=== PATIENT | female | born 1995 | race Caucasian/White ===

== ENCOUNTER 2023-10-13 08:09 | Outpatient (CLI) | payer OTHER, SELFPAY | END 2023-10-13 08:10 | disposition home or self-care (01) | LOC: NFLDREF 10-16 09:17 | PROVIDERS: PCP Family Medicine; Referring Provider Family Medicine; Visit Provider Midwife | DX: E66.01 Morbid (severe) obesity due to excess calories (principal); R73.09 Other abnormal glucose; Z68.41 Body mass index [BMI] 40.0-44.9, adult | CPT/HCPCS: 82951; 82952 ==

== ENCOUNTER 2023-12-01 09:05 | Outpatient (CLI) | payer OTHER, SELFPAY | END 2023-12-01 09:06 | disposition home or self-care (01) | LOC: NFLDREF 12-05 22:44 | PROVIDERS: PCP Family Medicine; Referring Provider Family Medicine; Visit Provider Advanced Practice Midwife | DX: Z34.03 Encounter for supervision of normal first pregnancy, third trimester (principal) | CPT/HCPCS: 86592 ==

== ENCOUNTER 2023-12-28 07:55 | Outpatient (CLI) | payer OTHER, SELFPAY ==
--- NOTE | 2023-12-28 08:00 | CRLHL7_ITS ---
For Patients: As a result of the Century Cures Act, medical imaging exams and procedure reports are released immediately into your electronic medical record. You may view this report before your referring provider. If you have questions, please contact your health care provider. INDICATION: Third trimester scan, evaluate growth. Gestational diabetes, obesity. COMPARISON: 07/25/2023 TECHNIQUE: Real time thibodeaux scale imaging of the fetus was performed. FINDINGS: Sonographic imaging demonstrates a single living intrauterine gestation. Fetus demonstrates a regular cardiac rate of 133 beats per minute. Fetus has a magda breech position. The placenta lies anteriorly. Amniotic fluid volume appears normal and there is a single deepest vertical pocket: 7.3 cm. The estimated weight is 2230gm which lies at the 73rd %. BPD 97th percentile. HC 95th percentile. AC 81st percentile. FL is 21st percentile. The HC/AC ratio measures 1.08 range (0.94-1.11). IMPRESSION: Sonographic gestational age 34 weeks 2 days and sonographic due date 02/06/2024. Sonographic age 12 days ahead of the clinical age. Estimated weight 73rd percentile. Abdominal circumference 81st percentile. Dictated by Danielito Thomas MD @ 12/28/2023 11:48:18 AM (Electronically Signed)
== END 2023-12-28 07:56 | disposition home or self-care (01) ==
LOC: US 07:56
PROVIDERS: PCP Family Medicine; Visit Provider Midwife
DX: O24.410 Gestational diabetes mellitus in pregnancy, diet controlled (principal); O99.213 Obesity complicating pregnancy, third trimester; E66.01 Morbid (severe) obesity due to excess calories; Z68.41 Body mass index [BMI] 40.0-44.9, adult; Z3A.34 34 weeks gestation of pregnancy
CPT/HCPCS: 76816

== ENCOUNTER 2024-01-26 09:45 | Outpatient (CLI) | payer OTHER, SELFPAY | END 2024-01-26 09:46 | disposition home or self-care (01) | LOC: NFLDREF 01-27 19:40 | PROVIDERS: PCP Family Medicine; Referring Provider Family Medicine; Visit Provider Advanced Practice Midwife | DX: Z34.93 Encounter for supervision of normal pregnancy, unspecified, third trimester (principal); Z3A.36 36 weeks gestation of pregnancy | CPT/HCPCS: 76816; 76819; 87081; 87653 ==

== ENCOUNTER 2024-02-08 07:14 | Outpatient (CLI) | payer OTHER, SELFPAY ==
--- NOTE | 2024-02-08 07:15 | CRLHL7_ITS ---
For Patients: As a result of the Cures Act, medical imaging exams and procedure reports are released immediately into your electronic medical record. You may view this report before your referring provider. If you have questions, please contact your health care provider. INDICATION: Gestational diabetes obesity. COMPARISON: Ob ultrasound and biophysical profile from 01/26/2024. FINDINGS: Transabdominal examination of the is performed. A single intrauterine gestation is seen in cephalic presentation with regular cardiac activity at 139 beats per minute. The placenta is anterior and is free of the cervical os. The placental grade is 1 and the amniotic fluid volume is elevated visually. The DVP is increasingly elevated at 11.1 cm, slightly increased compared to the previous study where it measured 10.2 cm, top-normal 8 cm. The MARIIA is prominently elevated at 35.4 cm, increased compared to the previous study where it measured 23.4 cm. These findings are consistent with increasing polyhydramnios. The biophysical profile score is 8/8 with no points off. IMPRESSION: 1. Single intrauterine gestation in cephalic presentation with regular cardiac activity. 2. Increasing polyhydramnios, DVP 11.1 cm, MARIIA 34.5 cm, both increased compared to the previous study. 3. Normal biophysical profile score of 8/8. Dictated by Scotty Segovia MD @ 02/08/2024 10:42:44 AM (Electronically Signed)
== END 2024-02-08 07:15 | disposition home or self-care (01) ==
LOC: US 07:17
PROVIDERS: PCP Family Medicine; Visit Provider Midwife
DX: O24.419 Gestational diabetes mellitus in pregnancy, unspecified control (principal); O40.9XX0 Polyhydramnios, unspecified trimester, not applicable or unspecified
CPT/HCPCS: 76819

== ENCOUNTER 2024-02-09 13:21 | Inpatient (IN) | payer OTHER, SELFPAY ==
[2024-02-09] VITALS (8 sets, daily range): BP systolic 120–127; BP diastolic 68–71; PULSE 99–113; RESP 18; TEMP 36.5–37; O2SAT 97–100; BMI 44.0
--- NOTE | 2024-02-09 13:31 | W.PM.LDBA ---
Subjective History of Present Illness Date Seen: 02/09/24 Narrative: Patient is being admitted to Labor and Delivery for induction of labor for moderate polyhydramnios. Severe poly diagnosed here, but on follow up with transfer to [facility] yesterday, they diagnosed with mild hydramnios based on SDP. Dr Caldera was consulted and recommendation was to start induction of labor today. She is a 28 year old at 38w5d weeks gestation. Her full history and physical was dictated by Dr. Marielos CRUZ on 02/08/2024. Please see this for details. See problem list below. She is planning a natural and Roderick is supporting her at the bedside. Specific Issues/Plans G1 Roderick H&P by Jordon Boyle CNM at 38 week visit on 02/08/2024. # Moderate, borderline severe Polyhydramnios MARIIA 35.4 on 02/07, referral to [facility] per patient request and seen same day [facility] 02/08: US Impression: Cephalic, EFW 4239 g or >97%ile, no anomalies identified, DVP 11.14 or Mild polyhydramnios present. Anterior placenta. BPP 10/25. [facility] recommended return to Midnight with recommended delivery at 39 0/7 weeks for BMI>40. Reviewed findings with Dr. Caldera who recommends delivery today based on findings. She is agreeable for her to remain here at [facility] due to likely Moderate poly, possibly borderline severe. IOL consent signed 02/08. Plan patient to return for IOL this afternoon. # GDM Growth US: see below IOL 39-40 08/24: Discussed IOL at 39 0/7 due to size, pt is nervous about this. See 01/25 visit # Pre BMI greater than 40 Hemoglobin A1c 5.2 Aspirin 81 mg Referral to coverage specialist rn: Declined Referral to anesthesia: completed 11/14 Level 2 ultrasound and consult with the MFM: Unremarkable findings. Recommended growth at 28 and 34 weeks and testing starting at 34 weeks. She did not recall this discussion and desires growth at 32. Early 1 hour GTT at 16-20 weeks: 141, f/u 3hr GTT passed all Weekly testing starting at 32 weeks: scheduled Growth ultrasound 32 weeks: EFW 73%, BPD 97%, HC 95%, SDP 7.3, magda breech. Consider growth at 36 weeks: EFW >97%ile, SDP 10.2, MARIIA 23.4 # GBS positive, recommend antibiotics in labor # Rubella nonimmune MMR # Anemia in , taking iron # Suspected Macrosomia EFW 02/07: 4239 g or >97%ile # Breech at 32 weeks, RESOLVED Cephalic at 34 Transfer at 16 2/7 from [facility] labs 06/26/2023: O positive Negative antibody screen Hemoglobin 13.1 Platelets 373 Rubella nonimmune RPR non-reactive Hepatitis-B surface antigen nonreactive Hepatitis-C nonreactive Varicella immune HIV negative Gonorrhea and chlamydia negative TSH 1.50 Hemoglobin A1c 5.2 Imaging 07/25/2023: [place]-rump length 3.3 cm, 10 weeks and 2 days. heart rate 172. BIMAL 02/18/2024 08/07/2023 panoramic: Negative/low risk Pap 11/30/2020:NIL Pap TDAP: 12/28/23 RSV: 01/18/2024 Flu: declined Covid: declined OB - Problem Based A/P Additional Plan (1) : Status: Acute (2) Polyhydramnios in park in third trimester: Problem details: severe by MARIIA of 35.4 on 02/08/2402/07 DVP 11.14 by MFM and considered Mild poly Status: Acute (3) GDM (gestational diabetes mellitus), class A1: Status: Acute (4) Anemia affecting : Status: Acute (5) Supervision of high-risk : Status: Acute (6) Morbid obesity with BMI of 40.0-44.9, adult: Status: Acute (7) ADHD: Status: Acute Plan ASSESSMENT:?? 28 at 38w5d gestation?? complicated by:??GDM A1, Moderate polyhydramnios, Elevated BMI, anemia in Labor type: Induced, not yet labor?? Category 2 FHR pattern.??? Labor complicated by: GDMA1, moderate polyhydramnios, elevated BMI? GBS positive? PLAN:?? 1. Routine intrapartum cares as ordered. Initiate ripening agents. Pt opted for vaginal cytotec. Will assess FHR a bit longer before initiating to make sure it is appropriate. 2. Monitoring per policy, continuous?? 3. Planning unmedicated . Will support her to do so. Candidate for analgesia of choice.??? 4. Patient encouraged to reposition and ambulate to promote physiologic labor and .?? 5. GBS prophylaxis initiated for GBS positive status. Will treat with antibiotics per protocol.? 6. RNs notified of history of asthma-avoid hemabate if at all possible 7. Type and screen and CBC along with RPR on admit consented by Patricia 8. Anticipate ? ? OB Result Labs Blood Type: O (+) positive Rubella: immune RPR/VDLR: nonreactive GBS Status: positive HBsAG: negative OB Exam Physical Exam Narrative: Vitals Reviewed Constitutional:? Alert and oriented x3 HEENT:? Normocephalic, atraumatic Neck:? Supple Lungs:? Clear to auscultation bilaterally Heart:? Regular rate and rhythm, no murmur, rub or gallop Abdomen:? Soft, nontender, and gravid. Vertex by Joel's, confirmed with US yesterday. Extremities:? No edema or erythema Cervix: 0.5 cm/30%/-3 station/vertex NST: 140 bpm/moderate variability/accelerations present/intermittent variables decelerations/contractions not palpable, uterine irritability noted on toco
[2024-02-09 14:44] LABS: Basophils Absolute Auto 0.02 K/uL (0.00-0.30); Basophils Percent Auto 0.4 % (0.0-3.0); Eosinophils Absolute Auto 0.01 K/uL (0.00-0.50); Eosinophils Percent Auto 0.2 % (0.0-7.0); Hematocrit 35.7 % (33.0-51.0); Hemoglobin* 11.9 gm/dL (12.0-16.0); Immature Granulocytes Abs Auto 0.07 K/uL (0.00-0.30); Immature Granulocytes Pct Auto 1.3 %; Lymphocytes Percent Auto 8.7 % (20-44); Mean Corpuscular HGB Conc 33 gm/dL (32-36); Mean Corpuscular Hemoglobin 29 pg (26-34); Mean Corpuscular Volume 88 fL (80-100); Neutrophils Percent Auto 83.4 % (42.0-72.0); Platelet Count* 263 K/uL (140-440); RDW Coefficient of Variation % 14.2 % (11.5-15.5); Red Blood Count 4.06 m/uL (4.00-5.20); White Blood Count* 5.54 K/uL (4.50-11.00)
[2024-02-09 14:54] LABS: Slide Review Reflex No
[2024-02-09] MEDS: miSOPROStoL 25 MCG/0.25 TABLET VAGINAL ×2 (15:20→18:32)
[2024-02-09] MEDS: LACTATED RINGERS 1000 ML 1,000 ML 125 ML IV (21:56)
[2024-02-09] MEDS: AMPICILLIN 2 GM in 0.9 % SODIUM CHLORIDE Mini-bag 100 ML IVPB (21:56)
--- NOTE | 2024-02-09 22:20 | PM.OBPNL ---
Subjective Date Seen: 02/09/24 Narrative: Patricia is a 28 yo G1 at 38w5d who was brought in for IOL for moderate polyhydramnios. Initially, baseline was 140-150s with accels, rare variables, moderate variability. The strip has changed significantly and I came in to assess when I was made aware. She SROM'd at 2121, copious clear fluid with a prolonged decel prior to ROM. GBS prophylaxis was initiated. Upon review of the strip it was noted there had been periods of tachycardia, intermittent variables and periods of decreased variability. Cervix was checked and found to be 1/0%/high, posterior, moderate consistency. Monitors have been changed and adjusted to get accurate assessment of the baby. Maternal tachycardia noted, fluid bolus given. Plan to continue to watch for well-being and reassess for the plan. Patricia and her partner understand the concerns and the plan. Dr Caldera notified of concerns and requested to come in house for assistance as needed. Objective Vital Signs: Last Vital Signs Temp 98.1 F 02/09/24 18:37 Pulse 113 H 02/09/24 21:31 BP 127/71 02/09/24 21:31
[2024-02-09] MEDS: hydrOXYzine pamoate 25 MG CAPSULE 100 MG PO (22:44)
[2024-02-09] MEDS: MORPHINE 10 MG/ML inj IM (23:57)
[2024-02-10] VITALS (34 sets, daily range): BP systolic 87–109; BP diastolic 48–68; PULSE 70–102; RESP 16–20; TEMP 36.4–37.1; O2SAT 94–98
--- NOTE | 2024-02-10 00:05 | PM.OBPNL ---
Subjective Date Seen: 02/10/24 Narrative: Patricia is a 28 yo G1 here for IOL for polyhydramnios. She is feeling contractions and rating them an 8/10 currently. Her partner is at the bedside and supportive. She is requesting morphine IM for pain relief. Objective Exam: Objective: Constitutional: Alert and oriented x3, mild distress, coping well Vital signs stable, see nurse documentation Abdomen: gravid, contractions palpate mild when palpable with contractions and soft between Cervix: 1 cm/0%/high stationper previous exam at approx 2230 NST: 150 bpm/moderate variability/accelerations present/intermittent rare decelerations/contractions q 1-2min Vital Signs: Last Vital Signs Temp 98.2 F 02/09/24 23:15 Pulse 113 H 02/09/24 21:31 Resp 18 02/09/24 23:15 BP 127/71 02/09/24 21:31 Pulse Ox 100 02/09/24 23:15 Assessment Assessment: induction ongoing Station: -4 Amniotic Membrane Status: SROM Status: Category ll Heart Rate Baseline: 150 Plan Plan: ASSESSMENT:?? 28 at 38w6d gestation?? complicated by:??GDM A1, Moderate polyhydramnios, Elevated BMI, anemia in Labor type: Induced, not yet labor?? Category 2 FHR pattern.??? Labor complicated by: GDMA1, moderate polyhydramnios, elevated BMI, cat 2 tones? GBS positive? PLAN:?? 1. Routine intrapartum cares as ordered. Initiate ripening agents. Pt opted for vaginal cytotec. Will assess FHR a bit longer before initiating to make sure it is appropriate. 2. Monitoring per policy, continuous?? 3. Planning unmedicated . Will support her to do so. Candidate for analgesia of choice.??? 4. Patient encouraged to reposition and ambulate to promote physiologic labor and .?? 5. GBS prophylaxis initiated for GBS positive status. Will treat with antibiotics per protocol.? 6. Much improved heart rate tracing 7. Since pain is increasing and contractions are so close together, will hold on IOL medication for now and reassess in one hour. Discussed increased risk of infection after SROM, so focus should be on moving closer to delivery. 8. Anticipate ?
--- NOTE | 2024-02-10 01:17 | PM.OBPNL ---
Subjective Date Seen: 02/10/24 Narrative: Patricia is a 28 yo G1 at 38w5d who was brought in for IOL for moderate polyhydramnios. She has been trying to rest intermittently and is now more comfortable after morphine and vistaril about an hour ago. She has no new complaints. Partner is supportive at bedside. Objective Exam: Objective: Constitutional: Alert and oriented x3, no distress, coping well Vital signs stable, see nurse documentation Abdomen: gravid, contractions palpate mild with contractions and soft between Cervix: see last exam NST: 145 bpm/moderate variability/accelerations not present/decelerations absent/clustering of contractions Vital Signs: Last Vital Signs Temp 98.2 F 02/09/24 23:15 Pulse 101 H 02/10/24 01:04 Resp 18 02/09/24 23:15 BP 109/52 L 02/10/24 01:04 Pulse Ox 100 02/09/24 23:15 Assessment Assessment: induction ongoing Station: -4 Amniotic Membrane Status: SROM Status: Category l Heart Rate Baseline: 140 Plan Plan: ASSESSMENT:?? 28 at 38w6d gestation?? complicated by:??GDM A1, Moderate polyhydramnios, Elevated BMI, anemia in Labor type: Induced, not yet labor?? Category 1 FHR pattern starting at 0112.??? Labor complicated by: GDMA1, moderate polyhydramnios, elevated BMI, cat 2 tones? GBS positive? PLAN:?? 1. Routine intrapartum cares as ordered. We have been holding on induction meds due to concerns for tracing and/or possibility of tachysystole. Now that Cat 1, will administer a dose of oral cytotec. 2. Monitoring per policy, continuous?? 3. Planning unmedicated . Will support her to do so. Candidate for analgesia of choice.??? 4. Patient encouraged to reposition and ambulate to promote physiologic labor and .?? 5. GBS prophylaxis initiated for GBS positive status. Will treat with antibiotics per protocol.? 6. Anticipate ?
[2024-02-10] MEDS: miSOPROStoL 25 MCG/0.25 TABLET PO (01:20)
[2024-02-10] MEDS: AMPICILLIN 1 GM in 0.9 % SODIUM CHLORIDE Mini-bag 100 ML IVPB ×2 (01:49→06:12)
[2024-02-10] MEDS: LACTATED RINGERS 1000 ML 1,000 ML 500 ML IV (04:17)
[2024-02-10] MEDS: OXYTOCIN 30 unit/500 ML in NS 30 UNIT/500 ML BAG IVPB (05:01)
--- NOTE | 2024-02-10 06:09 | P.OBPN_ITS ---
Subjective Date Seen: 02/10/24 Narrative: Patricia is a 28 yo G1 at 38w5d who was brought in for IOL for moderate ok yhydramnios. She has been resting intermittently through the night. Partner is supporting her at bedside. She has not requested pain medication since the one dose of narcotic. she has no new complaints. Pitocin was up to 1 mu/min during the night, but was not titrated up or turned off due to concern for FHTs. Objective Exam: Objective: Constitutional: Alert and oriented x3, no distress, coping well Vital signs stable, see nurse documentation Abdomen: gravid, contractions palpate mild with contractions and soft between Cervix: 1 cm/80%/high station/vertex NST: As a summary since last note, the majority of the strip exhibits 150 bpm/minimal variability with intermittent short periods of moderate/accelerations absent/ decelerations absent/irreg and often frequent, short contractions Vital Signs: Last Vital Signs Temp 98.4 F 02/10/24 05:12 Pulse 99 02/10/24 05:10 Resp 18 02/10/24 05:12 BP 108/58 L 02/10/24 05:10 Pulse Ox 97 02/10/24 05:10 Assessment Station: -4 Amniotic Membrane Status: SROM Status: Category ll Heart Rate Baseline: 150 Plan Plan: ASSESSMENT:?? 28 at 38w6d gestation?? complicated by:??GDM A1, Moderate polyhydramnios, Elevated BMI, anemia in Labor type: Induced, not yet labor?? Category 2 FHR pattern starting at 0112.??? Labor complicated by: GDMA1, moderate polyhydramnios, elevated BMI, cat 2 tones? GBS positive? PLAN:?? 1. Routine intrapartum cares as ordered. After one dose of cytotec, preferred to change to oxytocin for better control if needed. 2. Monitoring per policy, continuous?? 3. Planning unmedicated . Will support her to do so. Candidate for analgesia of choice.??? 4. Patient encouraged to reposition and ambulate to promote physiologic labor and .?? 5. GBS prophylaxis initiated for GBS positive status. Will treat with antibiotic s per protocol.? 6. Discussed current situation with Dr Caldera. Plan to increase pitocin unless FHTs show worsening signs. It is expected that pitocin be titrated up in presence of decreased variability IF no increase in baseline, decelerations are not present, and no other concerning signs. 7. Team aware of potential need for surgical intervention. Anticipate ?
[2024-02-10] MEDS: LACTATED RINGERS 1000 ML 1,000 ML 125 ML IV (07:00)
--- NOTE | 2024-02-10 07:35 | PM.OBPNL ---
Subjective Date Seen: 02/10/24 Narrative: ?Patricia is coping well with labor pain/contractions. ?Partner and exploration engineer are with her for support. ?Her recent blood sugar was 140, she had some juice overnight and her last meal was around 0100. Consulted with OB provider investigation lieutenant Dr. Abraham about elevated blood sugar and monitor strip by phone. She will be coming to the bedside to discuss plan of care moving forward. There has been Category II heart tones with minimal variability overnight. Objective Exam: VSS, afebrile General Appearance:? Calm, cooperative. ?No acute distress. ? Psychiatric Exam: Alert and oriented, appropriate affect Abdomen: Gravid Ctx: ?Q 2-3 min apart. ? ?Moderate ? FHTs: ?Baseline: 150. ? ? Variability: minimal . ?Accels: absent. ? ?Decels: ?none. SVE: deferred Membranes: ?SROM clear at 2121 on 02/09/24 Vital Signs: Last Vital Signs Temp 98.4 F 02/10/24 05:12 Pulse 99 02/10/24 05:10 Resp 18 02/10/24 05:12 BP 108/58 L 02/10/24 05:10 Pulse Ox 97 02/10/24 05:10 Assessment Amniotic Membrane Status: SROM Status: Category ll Heart Rate Baseline: 150 Plan Plan: Assessment:?? at 38.6 weeks gestation?? GBS positive Patient is coping well with challenges of labor.?? Labor type: Induced, Early labor? Category 2 FHR pattern.? complicated by: GDM A1, Moderate polyhydramnios, Elevated BMI, anemia in Labor complicated by: Persistent Category II heart tones GBS positive, currently being treated with antibiotics? Plan:?? OB consult IV insulin per protocol Hold IV Pitocin at this time Antibiotic prophylaxis treatment per protocol Continue with routine intrapartum cares as ordered.?? Patient encouraged to move and change positions to promote physiologic labor and .?? Nonpharmacologic comfort measures per patient preference. Candidate for analgesia of choice if desired.
[2024-02-10] MEDS: AZITHROMYCIN 500 MG in 0.9 % SODIUM CHLORIDE 250 ml 250 ML 255 MG IVPB (08:30)
--- NOTE | 2024-02-10 08:35 | P.OBCN_ITS ---
OB - CN: HPI Date of Consult Date Seen: 02/10/24 Patient: [facility] Patient Consult date: 02/10/24 Requesting Physician: Felisa Abraham MD Primary Care Provider: Kim Swift MD Consult Narrative Narrative: The patient is a 28 year old G 1 P 0 woman at 38 weeks, 6 days gestation that was admitted to the Center on 02/09/24 for cervical ripening. She has a complicated by recent diagnosis of polyhydramnios, variably considered mild to severe depending on the time frame and location of care. She has gestational diabetes, thus far controlled with diet. She has fetus with suspected macrosomia, with most recent ultrasound 2 days ago giving an EFW of 4239 g. She is also GBS positive, and is currently receiving antibiotics for this. Her induction thus far has consisted of 2 doses of vaginal Cytotec, after which she experienced rupture of membranes. Ultrasound was performed confirming cephalic lie. She then had a single dose of oral Cytotec. She received 1 dose of morphine for contraction pain around midnight. A just after 7 this morning, she had a blood sugar of 140, which would have necessitated initiation of insulin. However, repeat was beneath her threshold of requiring insulin. I was alerted of concerns regarding the heart tracing at 7:00 a.m.. Specifically, the fetus has had baseline around 150 all night, but has demonstrated minimal variability the majority of the night. As of our discussion at just after 8:00 a.m., there are normal decelerations but no recent accelerations. History History 1 Elective abortions Para 0 Spontaneous abortions Hx # Term Pregnancies Ectopic pregnancies Hx # Pregnancies Multiple births Number of Living Children 0 Labs Blood type: O (+) positive Rubella: immune RPR/VDLR: nonreactive GBS status: positive HBsAG: negative OB Labs: Lab Assessment Start: 02/09/24 13:23 Freq: ONCE Status: Complete Protocol: PC.OBGBS Activity Type Activity Date Activity User E-sign Co-sign Detail Recorded Client Recorded Date Recorded By Document 02/09/24 13:24 [facility] No Response 02/09/24 13:25 [facility] 02/09/24 13:24 Lab Assessment GBS Status positive Is Patient Allergic to Penicillin? No Treatment Required OK Are Labs Available Yes Maternal Blood Type O Maternal RH Factor Positive Evaluate Maternal Rubella Immune Status Non-Immune Hepatitis B Surface Antigen Negative Maternal HIV Status Negative Maternal Syphillis (RPR) Status Negative PFSH PFSH Medical History (Updated 02/09/24 @ 12:24 by Emerita Smith CNM) History of asthma ?Z87.09 - Personal history of other diseases of the respiratory system (ICD- 10) Surgical History (Updated 09/05/23 @ 13:52 by Shahnaz Flores PA-C) History of open reduction and internal fixation (ORIF) procedure ?Z98.890 - Other specified postprocedural states (ICD-10) History of breast augmentation ?Z98.82 - Breast implant status (ICD-10) Family History Mother Depression Asthma Maternal Grandmother Breast cancer Cancer of kidney Paternal Grandmother COPD (chronic obstructive pulmonary disease) Maternal Grandfather Lung cancer Paternal Grandfather Bone cancer Social History (Updated 09/05/23 @ 13:43 by Shahnaz Flores PA-C) Narrative: Occupation: [employer]. Marital status: . Jew/cultural needs: no. Chemical or radiation exposure: non. Pre- tobacco use: no. Pre- alcohol use: 0-1 per day. Current tobacco use: no. Current alcohol use: no. Recreational drug use: no. Dietary restrictions: no. Blood transfusion acceptable in an emergency: yes. PSYCHOSOCIAL HISTORY: History of depression or currently depressed: no. Current or past physical, emotional, or sexual mistreatment: no. Problems that will make it hard to make it to appointments: no. What is your current living situation?: I presently have a place to live Problems where you live: no known problems In the past 12 months, utilities in danger of being shut off: no In the past 12 mos, have been you worried that your food would run out before you had money to buy more?: never true In the past 12 mos, the food you bought just didn't last and you didn't have money to buy more?: never true Smoking Status: Never smoker How often does anyone, including family, friends and others, physically hurt you : never How often does anyone, including family, friends and others, insult or talk down to you: never How often does anyone, including family, friends and others, threaten you with harm: never How often does anyone, including family, friends and others, scream or curse at you: never Meds Home Medications and Allergies Home Medications ?Medication ?Instructions ?Recorded ?Confirmed ?Type LUD-imco-WZ-omega 3-fat com #1 27 cap PO DAILY 09/05/23 02/09/24 History mg-1 mg-300 mg capsule aspirin 81 mg chewable tablet 81 mg PO QDAY 09/05/23 02/09/24 History (Aspirin Childrens) magnesium 250 mg tablet 250 mg PO QDAY 09/05/23 02/09/24 History Allergies Allergy/AdvReac Type Severity Reaction Status Date / Time No Known Drug Allergies Allergy Verified 02/09/24 08:54 OB - H&P: Exam Physical Exam: Vital signs: Temp Pulse Resp BP Pulse Ox 97.8 F 89 18 96/55 L 97 02/10/24 08:01 02/10/24 08:01 02/10/24 05:12 02/10/24 08:01 02/10/24 08:01 Narrative: Physical exam: General: No acute distress, pausing for contraction, accompanied by her and amortization schedule clerk Psych: Alert and oriented x3, full affect HEENT: Normocephalic, atraumatic Heart: Regular rate and rhythm, no murmur rub or gallop Lungs: Clear to auscultation bilaterally Abdomen: Soft, nontender, gravid, pannus fold over lower uterine segment Lower extremities: No edema or erythema Pelvic exam: Last exam at 6:00 a.m. showed 1 cm, long, high, with no response to scalp stimulation OB - Results Labs Labs: Short CBC 02/09/24 Range/Units 14:33 WBC 5.54 (4.50-11.00) K/uL Hgb 11.9 L (12.0-16.0) gm/dL Hct 35.7 (33.0-51.0) % Plt Count 263 (140-440) K/uL OB - CN: A/P Assessment and Plan (1) : Status: Acute (2) Polyhydramnios in park in third trimester: Problem details: severe by MARIIA of 35.4 on 02/08/2402/07 DVP 11.14 by MFM and considered Mild poly Status: Acute (3) GDM (gestational diabetes mellitus), class A1: Status: Acute (4) Anemia affecting : Status: Acute (5) Supervision of high-risk : Status: Acute (6) Morbid obesity with BMI of 40.0-44.9, adult: Status: Acute (7) ADHD: Status: Acute Plan I recommended delivery for nonreassuring status remote from delivery. I do not recommend any further attempts at cervical ripening or induction of labor with the tracing as it has been all night. Patient was understanding and accepting of the plan. We discussed surgical risks, including bleeding, blood transfusion, infection, injury to adjacent organs, impact on future pregnancies given the hysterotomy, increased risk of thromboembolism. We discussed likely recovery and restrictions as well. Consent form was reviewed with and signed by patient. 3 g cefazolin and 500 mg azithromycin for preoperative prophylaxis. SCDs and Lovenox at intermediate dose for DVT prophylaxis .
[2024-02-10] MEDS: CEFAZOLIN 1 GM inj 3 GM IVP (09:28)
[2024-02-10] MEDS: KETOROLAC 30 MG/ML inj IVP ×3 (10:12→22:29)
--- NOTE | 2024-02-10 10:50 | PM.OBPRCCS ---
Procedure Date of procedure: 02/10/24 Pre-op diagnosis: 38 weeks, 6 days gestation Nonreassuring status in the setting of induction of labor, remote from delivery Gestational diabetes Polyhydramnios Suspected macrosomia GBS positive status Post-op diagnosis: same Procedure Done: only Will [facility] bill your pro fee for this procedure?: Yes Blood Loss Measurement Type: QBL (890) Bakri Used: No IV fluids (mL): 500 Urine Output (mL): 150 Urine Output Comment: Blood tinged Surgeon: Felisa Abraham MD Anesthesia Type: Spinal Findings: FINDINGS: 1. Female infant, cephalic OA presentation, Apgars of 8 and 9, weight 4040 g, or 8 lb and 15 oz 2. Normal appearance to uterus, bilateral tubes and ovaries. Procedure Name: Primary low-transverse delivery Procedure Description: PROCEDURE IN DETAIL: Patient was taken to the operating room with IV running. She received cefazolin and azithromycin in preoperative prophylaxis. Spinal anesthesia was administered. Valle catheter was inserted. She was prepped and draped in the usual sterile fashion. Anesthesia was tested and found to be adequate. A low-transverse skin incision was made with a scalpel and carried through to the underlying layer of fascia with the scalpel. The subcutaneous fat was dissected off the underlying fascia with Bovie. The fascia was nicked in the midline with a scalpel, and this incision was extended laterally with scissors. The rectus muscles were in the midline. Peritoneum was identified and entered bluntly. Bovie was used to widen this opening laterally. Johnathon O retractor was inserted and tightened down, providing excellent visualization of the lower uterine segment. The bladder reflection was found to be well below the planned site for hysterotomy. Low-transverse uterine incision was made with a scalpel. Incision was widened bluntly. The 's head was grasped through the hysterotomy and delivered, after several attempts, with the help of fundal pressure. The peritoneal incision was widened during these attempts, and the Johnathon O retractor was removed. The shoulders were delivered through the hysterotomy one by one, hooking beneath the axilla. The remainder of the body delivered without incident. Cord was clamped and cut after 30 seconds. Infant was handed off to attending air transportation provider. The placenta was delivered with gentle traction on the cord. The uterus was exteriorized and cleaned of all clots and debris with the dry lap pad. The hysterotomy was reapproximated with 0 Vicryl in a running, locked fashion. Second layer of the same suture was used in imbricating fashion to obtain hemostasis. The adnexa were examined and noted to be normal in appearance. The cul-de-sac was cleansed with a dry laparotomy sponge. The uterus was returned to the abdomen. The hysterotomy was reexamined and found to be hemostatic. The gutters were cleansed with a dry laparotomy sponge, removing any further clots and debris. The peritoneum was reapproximated with 2 0 Vicryl in a running fashion. The rectus muscles were examined and found to be hemostatic. The fascia was reapproximated with 0 Vicryl in a running fashion. Subcutaneous fat was irrigated and Bovie used on oozing vessels. The subcutaneous fat was reapproximated with 2 0 plain gut suture in an interrupted fashion. The skin was closed with a subcuticular stitch of 4-0 Monocryl. Surgical glue was applied above this. Patient tolerated procedure well was taken to recovery area in stable condition. Complications: None Pathology: specimen obtained, sent to pathology (segment of placenta) Surgery Debrief Performed: Yes Condition: stable Disposition: floor [place] Infant total score - 1 minute: 8 total score - 5 minute: 9
--- NOTE | 2024-02-10 10:51 | P.ANES_ITS ---
Anesthesia Charges Start Date/Time Anesthesia Start Date: 02/10/24 Anesthesia Start Time: 08:58 Stop Date/Time Anesthesia Stop Date: 02/10/24 Anesthesia Stop Time: 10:39 Summary Emergency: PARAMEDIC SUPERVISOR
--- NOTE | 2024-02-10 10:51 | W.PM.NB ---
Nerve Block Nerve Block Time Seen by Provider: : Date Seen: 02/10/24 Type of block requested by surgeon for post-operative analgesia: TAP Side: bilateral Time out performed: Yes Verification of patient name: Yes Verification of date of : Yes Site marking: site marked Name of person performing procedure: Drew Costello Continuous monitoring Was continuous monitoring of O2 sat, B/P, director of cardiac rehabilitation, recorded every 15 minutes?: Yes Procedure Checklist: sterile prep, needles and gloves Ultrasound guided. Images saved: Yes Medications given in 5ml increments after negative aspiration: Marcaine %: 0.25 mL: 30 Needle gauge: 20 and Exparel mL: 10 Needle gauge: 20 Patient tolerated procedure well: Yes Additional comments: Injected in 5 mL increments after negative aspiration Block Charges Block Charge (with Pro Fee): TAP Bilateral Use of Ultrasound Machine for Block: Yes- US Guidance/pain block
[2024-02-10] MEDS: ACETAMINOPHEN 500 MG TABLET 1000 MG PO ×2 (12:54→22:58)
[2024-02-10] MEDS: LACTATED RINGERS 500 ML 500 ML 125 ML IV (14:12)
[2024-02-10] MEDS: ENOXAPARIN 40 MG/0.4 ML INJ SUBCUT (22:30)
[2024-02-10] MEDS: IBUPROFEN 600 MG TABLET PO (22:58)
[2024-02-11] VITALS (15 sets, daily range): BP systolic 91–107; BP diastolic 60–69; PULSE 79–92; RESP 15–18; TEMP 36.9; O2SAT 96–98
[2024-02-11] MEDS: IBUPROFEN 600 MG TABLET PO ×4 (04:49→23:35)
[2024-02-11 06:25] LABS: Hemoglobin* 10.7 gm/dL (12.0-16.0)
[2024-02-11] MEDS: ACETAMINOPHEN 500 MG TABLET 1000 MG PO (07:21)
--- NOTE | 2024-02-11 09:31 | PM.OBPNVD1 ---
OB - PN:Subj Subjective Date Seen: 02/11/24 Narrative: Patricia is a 28 y.o. who was admitted to L & D for induction of labor due to GDM and moderate polyhydramnios.? She had an uncomplicated primary .? ? The patient feels well.? The pain is well controlled with current medications.? She has no new complaints.? She is breast feeding and reports things are going well.? the patient has done well.? Vitals have been stable.? She has remained afebrile.? Has a good appetite, is tolerating a general diet.? She is voiding without difficulty.? She is passing gas and has not had a bowel movement.? She is ambulating and denies any dizziness.? Has Small amount of rubra lochia.? OB - PN: Obj Exam Physical Exam: Vital signs: Temp Pulse Resp BP Pulse Ox O2 Del Method 98.4 F 83 16 93/64 98 Room Air 02/11/24 07:31 02/11/24 07:31 02/11/24 08:34 02/11/24 07:31 02/11/24 07:31 02/11/24 07:31 Narrative: GENERAL APPEARANCE:? normal affect, alert, no distress MOOD:? appropriate CHEST:? clear to auscultation HEART:? regular rate and rhythm ABDOMEN:? soft, non-tender the uterine fundus is firm At Umbilicus, Midline and is appropriate for the stage of recovery. EXTREMITIES:? normal and 1+ edema Incision: dressing clean dry intact, due to be removed today Urinary Catheter Management: 2-way Urethral: Cath placed during this visit: no OB - PN: Obj Data Labs Labs: Laboratory Results - last 24 hr 02/11/24 06:14 Hgb 10.7 L OB - PN: A/P Delivery Assessment and Plan (1) : Status: Acute (2) Polyhydramnios in park in third trimester: Problem details: severe by MARIIA of 35.4 on 02/08/2402/07 DVP 11.14 by MFM and considered Mild poly Status: Acute (3) GDM (gestational diabetes mellitus), class A1: Status: Acute (4) Anemia affecting : Status: Acute (5) Supervision of high-risk : Status: Acute (6) Morbid obesity with BMI of 40.0-44.9, adult: Status: Acute (7) ADHD: Status: Acute (8) care and examination immediately after delivery: Status: Acute (9) Status post delivery: Status: Acute (10) Lactating mother: Status: Acute Plan day: 1 Plan: routine care Comments: Assessment/Plan?G 1 P 1 status post uncomplicated primary .? ?? 1.? Continue route PP cares? 2.? .? May see if desired? 3.? Anticipate discharge home tomorrow or the following day per pt preference? ?
--- NOTE | 2024-02-11 10:03 | PM.OBPNVD1 ---
OB - PN:Subj Subjective Date Seen: 02/11/24 Interval history: Patricia is a 28 year old G 1 now P1-0-0-1 woman s/p primary LTCS on 02/09 at 38 weeks, 6 days gestation for indication of nonreassuring status. This was in the setting of IOL for polyhydramnios, GDMA1, with suspected macrosomia. OB - PN: Obj Exam Physical Exam: Vital signs: Temp Pulse Resp BP Pulse Ox O2 Del Method 98.4 F 83 16 93/64 98 Room Air 02/11/24 07:31 02/11/24 07:31 02/11/24 08:34 02/11/24 07:31 02/11/24 07:31 02/11/24 07:31 Narrative: General: Pleasant, no acute distress Heart: Regular rate and rhythm, no murmur or gallop Lungs: Clear to auscultation bilaterally Abdomen: Soft, nontender, fundus well below umbilicus Lower extremities: No edema or erythema Urinary Catheter Management: 2-way Urethral: Cath placed during this visit: no OB - PN: Obj Data Labs Labs: Laboratory Results - last 24 hr 02/11/24 06:14 Hgb 10.7 L OB - PN: A/P Delivery Assessment and Plan (1) : Status: Acute (2) Polyhydramnios in park in third trimester: Problem details: severe by MARIIA of 35.4 on 02/08/2402/07 DVP 11.14 by MFM and considered Mild poly Status: Acute (3) GDM (gestational diabetes mellitus), class A1: Status: Acute (4) Anemia affecting : Status: Acute (5) Supervision of high-risk : Status: Acute (6) Morbid obesity with BMI of 40.0-44.9, adult: Status: Acute (7) ADHD: Status: Acute (8) care and examination immediately after delivery: Status: Acute (9) Status post delivery: Status: Acute (10) Lactating mother: Status: Acute
[2024-02-11] MEDS: ENOXAPARIN 40 MG/0.4 ML INJ SUBCUT ×2 (10:50→23:34)
[2024-02-11] MEDS: FERROUS SULFATE 325 MG TABLET PO (10:52)
[2024-02-11] MEDS: DOCUSATE SODIUM 100 MG CAPSULE PO (12:14)
[2024-02-11] MEDS: MEASLES,MUMPS,RUBELLA VACC/PF 1 DOSE INJ 1 EACH SUBCUT (15:05)
[2024-02-12 01:11] LABS: Rapid Plasma Reagin (RPR) Non Reactive (Non Reactive)
[2024-02-12 07:19] LABS: Glucose Fasting 78 mg/dl (70-95)
--- NOTE | 2024-02-12 08:00 | P.DS_ITS ---
DS: Providers Provider Date Seen: 02/12/24 Date of admission: 02/09/24 13:21 Primary care physician: Kim Swift MD Admitting Clinician: Kianna Pardo CNM Consults: 02/10/24 07:45 Consult to Physician [CONS] Routine Comment: Consulting Provider: Felisa Abraham Has provider been notified: Yes Attending Physician on discharge: Wally CRUZ SMOKE CHASER Date of Discharge: 02/12/24 DS: Diagnosis Discharge Diagnosis (1) Status post delivery: Status: Acute (2) GDM (gestational diabetes mellitus), class A1: Status: Acute (3) Morbid obesity with BMI of 40.0-44.9, adult: Status: Acute (4) ADHD: Status: Acute (5) care and examination of lactating mother: Status: Acute Exam Narrative: Exam Narrative: GENERAL APPEARANCE:? normal affect, alert, no distress MOOD:? appropriate CHEST:? clear to auscultation HEART:? regular rate and rhythm ABDOMEN:? soft, non-tender the uterine fundus is 1 cm above Umbilicus (she has not voided recently), Midline and is appropriate for the stage of recovery. EXTREMITIES:? normal and mild edema Incision: Healing well, no surrounding erythema, abnormal induration or discharge Const: Vital Signs, click to edit/add: Vital Signs - 24 hr 02/11/24 08:34 02/11/24 09:14 02/11/24 15:01 Temperature 98.5 F Pulse Rate [Pulse Oximeter] 92 Respiratory Rate 16 16 15 Blood Pressure [Le ft Arm] 107/69 Pulse Oximetry 98 Oxygen Delivery Me thod Room Air 02/11/24 23:31 Temperature Pulse Rate [Pulse Oximeter] 89 Respiratory Rate 16 Blood Pressure [Le ft Arm] 99/61 Pulse Oximetry 98 Oxygen Delivery Me thod OB - DS: Summary Hospital Course Hospital Course: Patricia is a 28 y.o. G 1 P 1001 who was admitted to L & D for IOL for polyhydramnios.? She had a primary section for intolerance of labor that was uncomplicated. The patient feels well.? The pain is well controlled with current medications.?She has not used any oxycodone. She has no new complaints.? She is breast feeding and reports things are going well, but would like to see today. the patient has done well.? Vitals have been stable.? She has remained afebrile.? Has a good appetite, is tolerating a general diet.? She is voiding without difficulty.? She is passing gas and has had a tiny bowel movement.? She is ambulating and denies any dizziness.? Has small amount of rubra lochia. She is planning condoms for prevention.? ?? Problems: none? plan:? Discharge home with baby.? Follow up in 2 weeks and 6 weeks.? , to see before discharge Hgb 10.7. To continue iron supplement at home? 2 hour GTT pending? Letter given to to turn into work stating unplanned primary as requested. ? Peripartum Data delivery method: Primary C/S; Labored Procedures: Procedures Operation Date: 02/10/24 09:15 Actual Procedure Side Surgeon p Primary Low Transverse Section Felisa Abraham MD complications: none [place] Gender: Female Discharge Plan: Home Status at Discharge Overall status at discharge: patient is progressing back to baseline Time Spent with Patient Time attestation: Total time spent providing and/or coordinating discharge services: Time spent: Less than 30 minutes Discharge Plan Discharge Disposition: Home, Self-Care Date of Admission: 02/09/24 13:21 Attending Provider on Discharge: Kianna Pardo Consulting Providers: Felisa Abraham Primary Care Provider: Kim Dutta Discharge Medications: Continued [id number] 3-fat com #1 27-1-300 mg capsule PO DAILY magnesium 250 mg tablet 250 mg PO QDAY ferrous sulfate 325 mg (65 mg iron) tablet 325 mg PO Q OTHER DAY Qty: 60 2RF Discontinued aspirin [Aspirin Childrens] 81 mg tablet,chewable 81 mg PO QDAY (DME) Test Strips Misc See Rx Instructions .MEDSUPPLY Qty: 100 3RF Rx Instructions: Test blood sugar 4 times daily as directed. (DME) lancets Misc See Rx Instructions .MEDSUPPLY Qty: 100 3RF Rx Instructions: Test blood sugar 4 times daily as directed (DME) Blood Glucose Meter Misc See Rx Instructions .MEDSUPPLY Qty: 1 0RF Rx Instructions: As directed Discharge Orders: Discharge Order (Routine); Ordered 02/12/24 Ordered By: Kianna Pardo Patient Education: OB [place] Care, OB /Breast Feeding Additional Instructions: Discharge instructions were reviewed with the patient including signs and symptoms of infection and home going medications Lifting Restrictions: 20 pounds for 6 weeks No not submerge incision under water X 2 weeks? Nothing vaginally for 6 weeks: no tampons or intercourse Do not drive while taking narcotic pain medication(s) Off Work or School for 6 weeks Symptoms to report to doctor: * Bleeding that saturates more than one pad per hour * Passing clots larger than the size of a golf ball * Pain not relieved by prescribed medication * Fever above 100.4 degrees Fahrenheit * A foul vaginal odor * Difficulty in emotions, mood, and functions * Thoughts of hurting yourself and/or * Painful, reddened area in your breast * Any drainage, redness, or tenderness in your IV/epidural site * Severe headache that doesn't improve after taking medications * Changes in vision, including temporary loss of vision, blurred vision, and/or light sensitivity * Upper abdominal pain (usually under ribs on the right side) * Decrease in urination or painful, frequent urinating * Chest pain * Shortness of breath * Tenderness or pain with redness and/swelling in the calf(s) of your leg 2-week visit: incision check, discuss infant feeding concerns, review control options and screen for anxiety/depression. 6-week visit for an annual exam. consultation services are available to all mothers and babies for the first year after delivery.? To make an appointment, please call [phone]. For pain control of perineum, breast and pelvic pain, take 600 mg Ibuprofen every 6 hours as needed by mouth or 1000 mg acetaminophen (Tylenol) every 6 hours by mouth as needed. You can alternate these so you are taking something every 3 hours as needed. A heating pad can also be used for your abdomen or breasts. You may also take docusate sodium up to twice daily to soften your stools and help to prevent constipation. You may wean off of it when your stools return to normal.? Activity Level: Activity as Tolerated and No strenuous activity Discharge Diet: Regular Follow Up Appointments: [facility] [Provider Group] Forms: [facility] Info Instructions
[2024-02-12 08:37] VITALS: BP 100/68; PULSE 96; RESP 16; TEMP 36.9; O2SAT 95
[2024-02-12 08:58] LABS: Glucose 2 Hour 98 mg/dl (70-155)
[2024-02-12] MEDS: DOCUSATE SODIUM 100 MG CAPSULE PO (09:36)
[2024-02-12] MEDS: IBUPROFEN 600 MG TABLET PO (09:37)
[2024-02-12] MEDS: ENOXAPARIN 40 MG/0.4 ML INJ SUBCUT (11:04)
== END 2024-02-12 13:11 | disposition home or self-care (01) | DRG 788 ==
PROVIDERS: Admitting Provider Midwife; PCP Family Medicine; Visit Provider Obstetrics & Gynecology
PROC: 10D00Z1 Extraction of Products of Conception, Low, Open Approach (ICD-10-PCS; CPT 59514; principal; 2024-02-10 09:00)
DX: O40.3XX0 Polyhydramnios, third trimester, not applicable or unspecified (principal); O24.420 Gestational diabetes mellitus in childbirth, diet controlled; O76 Abnormality in fetal heart rate and rhythm complicating labor and delivery; G89.18 Other acute postprocedural pain; O99.824 Streptococcus B carrier state complicating childbirth; O99.02 Anemia complicating childbirth; D64.9 Anemia, unspecified; O99.214 Obesity complicating childbirth; E66.01 Morbid (severe) obesity due to excess calories; F90.9 Attention-deficit hyperactivity disorder, unspecified type; Z3A.38 38 weeks gestation of pregnancy; Z37.0 Single live birth
CPT/HCPCS: 01961; 36415; 51798; 59200; 64488; 76942; 82947; 82950; 82962; 85018; 85025; 86592; 86850; 86900; 86901; 88307; 99140; A9270; C9290; J0290; J0456; J0665; J0690; J1100; J1650; J1885; J2270; J2274; J2371; J2405; J2590; J7050; J7120

== ENCOUNTER 2024-02-23 13:02 | Outpatient (CLI) | payer OTHER, SELFPAY ==
--- NOTE | 2024-02-23 16:01 | P.LACCB_ITS ---
Consult Note - Mom Date of Visit Date of visit: 02/23/24 Reason for consultation: Assistance Needed, Breast/Nipple Issue and Low Milk Supply Visit Code: Visit Patient's Information Phone number: [phone] : 1 Para: 1 Allergies No Known Drug Allergies Allergy (Verified 02/09/24 08:54) Mother's Medical History: Medical History (Updated 02/16/24 @ 00:01 by Background Daemon) Thyroid nodule ?E04.1 - Nontoxic single thyroid nodule (ICD-10) Morbid obesity with BMI of 40.0-44.9, adult ?E66.01 - Morbid (severe) obesity due to excess calories (ICD-10) ?Z68.41 - Body mass index [BMI] 40.0-44.9, adult (ICD-10) Polyhydramnios in park in third trimester ?O40.3XX0 - Polyhydramnios, third trimester, not applicable or unspecified (ICD-10) GDM (gestational diabetes mellitus), class A1 ?O24.410 - Gestational diabetes mellitus in , diet controlled (ICD- 10) Anemia affecting ?O99.019 - Anemia complicating , unspecified trimester (ICD-10) ADHD ?F90.9 - Attention-deficit hyperactivity disorder, unspecified type (ICD-10) History of asthma ?Z87.09 - Personal history of other diseases of the respiratory system (ICD- 10) Delivery Information Delivery type: Primary C/S; Labored Gestational Age: 38 Gestational Weight For Age: AGA Weight: 4.04 kg Discharge Weight: 3.826 kg Percentage weight loss: 5.3 Baby's Information Baby's Age at Visit: 13 days Baby's Provider or Clinic: [facility] Jaundice: No Past Experience Past Experience: No Current Frequency of Day Feedings: every 2 hours or so Frequency of Night Feedings: every 3 hours or so Both Breasts: Yes Suck: strong Latch: wide, deep Length of Time: 10-15 min ea side Goals: hoped for 6 months, now hoping for 2 months given concern with milk supply Pumping Pumping: Yes Quantity Pumped: 10-15 ml at most Supplementing EBM Supplement: Yes Formula Supplement: Yes (takes 1-2 oz after each session) Baby Elimination Number of Wet Diapers a Day: ea feeding Number of BM a Day: 3-4/day Breast/Nipple Condition Breast Information: Breasts are symmetrical with rounded lower quadrants, intramammary distance is less than 1.5 inches. No erythema. Nipples are supple, everted prior to feeding. History from mom: had very small breasts after puberty; had breast augmentation at age 23 to have breast size feel congruent with body size and even out size from one to the other. Implants are under the muscle and incision is under the breast, no nipple/areolar disruption In talking with mom about the possibility of insufficient glandular tissue (breast hypoplasia) she pulled up pictures from before her breast implants. Nipple/areolar quite bulbar in appearance and intramammry distance appears greater than 1.5 inches. She reports very minimal breast changes during and hasn't really felt her milk come in nor does she feel any letdowns nor does she feel full and then softer after feeding baby. Breast Shape: Round Engorgement: No Maternal Nipple Condition - Left: Common Nipple Maternal Nipple Condition - Right: Common Nipple Sore Nipples: No Baby Assessment Skin: Normal Tongue/frenulum: Normal/elastic Palate: Average Lips: Relaxed and Symmetrical Jaw Alignment: Symmetrical Mucosa: [place], moist Onsite Observation Pre-Feed weight: 3.84 kg Post-Feed weight: 3.846 kg Milk Transferred (mL): 6 (nursing 14 min on left breast and 11 min on right breast) Position: Cross cradle Attachment/latch-on achieved: Easily Suck pattern: Suck burst and normal rest Swallow: Occasionally Behavior following feed: Alert, content Pre-Nursing Left Nipple: Within Normal Limits Pre-Nursing Right Nipple: Within Normal Limits Post-Nursing Left Nipple: Within Normal Limits Post-Nursing Right Nipple: Within Normal Limits Assessments/Interventions Assessments/Interventions: Discussed ramifications of insufficient glandular tissue on milk supply Discussed options of continuing on with for bonding/connection if desired; recommend 5-10 minutes for baby to get milk available Discussed galactogogues as an option to try and increase milk supply; research is limited and data is sparse. No guarantee it would help supply, likely not harmful if mom wants to try Discussed hand expression to get more milk after feeding and may elicit more output than pumping. Discussed option of SNS if desires to provide feeding at the breast and how to utilize this kind of a system. Mom and dad will discuss options and decide on a plan. Education provided: Early feeding cues to maximize timing of latching, Hand expression and Pumping for milk management Follow-Up Suggested follow up: Appointment as needed Recommend baby be seen by provider for:: regular weight check/well visit appts Time Spent Time spent with patient (min): 90 (time with patient, and infant) Meds Home Medications and Allergies Home Medications ?Medication ?Instructions ?Recorded ?Confirmed ?Type [id number] 3-fat com #1 27 cap PO DAILY 09/05/23 02/09/24 History mg-1 mg-300 mg capsule magnesium 250 mg tablet 250 mg PO QDAY 09/05/23 02/09/24 History Allergies Allergy/AdvReac Type Severity Reaction Status Date / Time No Known Drug Allergies Allergy Verified 02/09/24 08:54
== END 2024-02-23 13:03 | disposition home or self-care (01) ==
LOC: OB LAC 13:03
PROVIDERS: PCP Family Medicine; Visit Provider Obstetrics & Gynecology
DX: Z39.1 Encounter for care and examination of lactating mother (principal)
CPT/HCPCS: G0463

== ENCOUNTER 2024-03-27 11:25 | Outpatient (CLI) | payer OTHER, SELFPAY ==
[2024-03-29 09:09] LABS: HPV Source Cervical; HPV, High Risk by TMA Not Detected
== END 2024-03-27 11:26 | disposition home or self-care (01) ==
PROVIDERS: PCP Family Medicine; Visit Provider Advanced Practice Midwife
DX: Z12.4 Encounter for screening for malignant neoplasm of cervix (principal)
CPT/HCPCS: 87624; 87625; 88141; 88142